=== PATIENT | female | born 1945 | race Caucasian/White ===

== ENCOUNTER 2018-06-18 00:59 | Outpatient (CLI) | payer MEDICARE, SELFPAY ==
--- NOTE | 2018-06-18 10:15 | DI.RPTCT_ITS ---
SYMPTOM/DIAGNOSIS: S/P ORIF FEMORAL FX SCANOGRAM CT 06/18 CT scanogram was performed for leg length determination. The examination is not intended for diagnostic purposes. Note is made of a left intramedullary graeme/gamma nail in the femur.
== END 2018-06-18 01:00 ==
PROVIDERS: Visit Provider Podiatrist
DX: S72.102D Unspecified trochanteric fracture of left femur, subsequent encounter for closed fracture with routine healing (principal)

== ENCOUNTER 2018-06-25 08:30 | Outpatient (RCR) | payer MEDICARE, SELFPAY ==
--- NOTE | 2018-05-29 08:42 | AT_ITS ---
05/29/18 ATx2- See flow sheet. Pt requires remarkable skilled cueing for proper performance of all exercises due to poor body awareness particularly with hip girdle exercises. Continued cueing to reduce (L) hip Trendelenburg and better glute activation. See flow sheet for specifics for exercises. Focused more on hip versus UE todays. I will be following up with her in the clinic tomorrow. Total Time: 45 minutes Direct Time: 30 minutes Pt performs a warm up and cool down activities with minimal supervision.
--- NOTE | 2018-05-30 11:40 | PTTR_ITS ---
DATE: 05/30/18 OBJECTIVE: Co treatment with PT Yissel Nair Therapeutic procedures ([id number]). * X Provided skilled instruction in proper exercise performance: Pt completed glute strengthening, LE strengthening, SLS activities, reviewing pt ambulation with gait mechanics, scapular stabilization ther ex, ocean freight agent strengthening, UE strengthening, and cardio on the Nu Step. We tried to complete the treadmill but pt was having some difficulty with her ambulation so it was better just ambulating in the clinic. Pt did require mod vc's and tactile throughout her session for correction of posture and mechanics. Direct treatment time: 30 Total treatment time: 35
--- NOTE | 2018-05-30 15:20 | PTTR_ITS ---
DATE: 05/30/18 SUBJECTIVE: Pt wishes that she was not limping.denies any (L) wrist pain. Her function continues to improve weekly. She is now performing more gripping and grasping activities, of course struggles with more higher level activities. She continues to struggle with supination noticing this when tossing a salad or lifting something up to toss it to her (L) side. She does massage along the anterior hip which decreased some of her fluid, and she continues to perform this on her own. Would like assist with this once again. Will likely begin swimming performing free swim. OBJECTIVE: Observation: Continues to have mild discomfort along the anterior (L) hip. ROM: (L) hip pre tx: Flexion is at 100* ER is 20* IR 10* Abduction 20* Extension 0* Post Tx: Flexion 120* ER 40* IR 20* Extension 5* Abduction 30* (L) wrist Pre Tx: Flexion/Extension 45* Supination 45* Pronation Full Radial and Ulnar deviation WNL Post Tx: Flexion 70* Extension 80* Supination 60* Accessory motion: Moderately limited into all planes of the (L) hip particularly the PA mobs, (L) wrist is WNL. Manual therapy: ([id number]). Mobilize (L) hip all planes of motion with grade 4 oscillations. Prolonged stretching into figure 4 position and supine twist. Cupping throughout the (L) anterior thigh along the region of fluid accumulation. (L) wrist accessory mobilization all planes with end range over pressure into flexion and extension. Primary focus on supination working distally and proximally at the elbow. TP- Minimal time spent initiate (R) side lying (L) clam, and (L) hip abduction SLR. For proper activation of (L) glute and to ensure proper movement performance with multiple cues needed for correction. She was then continued to be treated by Ira Yoon PTA per my direction for focus of (L) hip stabilization due to cues needed. ASSESSMENT: Shahnaz is doing well, she does continue to have a mild gait antalgia with mild Trendelenburg during (L) stance. In hesitant due to fear. She has premature toe off not allowing for full extension at the (L) hip. Will be initiating more isolated land based ther ex with (L) hip to reduce these impairments. (L) wrist seems to be doing well primarily making gains for functional use, primary will focus on the (L) hip incorporating (L) wrist strengthening throughout. Primary focus of the hip is the extensors and abductors for stabilization limited in static stabilization versus the (L) hip, and gait training. Her pain is under good control. She will continue with free swimming on her own and focus on general fitness and gross conditioning. PLAN:Proceed 2x per week with land based interventions for (L) hip stabilization and mobilization and (L) UE strengthening. Direct treatment time: 30 minutes Total treatment time: 30 minutes
--- NOTE | 2018-06-02 10:30 | PTTR_ITS ---
DATE: 06/02/18 SUBJECTIVE: Shahnaz stating she went for a 3 1/2 hour walk over the weekend, she was just globally fatigued following this. She continues to report minimal pain. She feels her L wrist mobility in regards to supination continues to improve more and more as she is noticing with tossing salads, or lifting objects and transferring them to her l side is getting easier. Manual therapy: ([id number]). L hip: AP mobilization and lateral mobilization followed by ROM all planes with grade 4 oscillation end ranges, working into IR/ ER, hip abduction as well as hip extension and hip flexion, L hip ROM: flexion 120, ER reaches 30, IR 20, abduction 30, extension 5 degrees. SLR is full. L wrist: Complete distraction of distal radial and ulnar mobilizations, and proximal radial, ulnar mobs. Complete end range flexion/extension over pressure reaching 80 degrees easily with most of focus into supination grade 4 oscillations, beginning at 45 degrees, ending at 80 degrees of motion. She is then seen by Ira Yoon PTA for her Therex portion of treatment per my direction. Direct treatment time: 30 mins Total treatment time: 30 mins MAURILIO/dl
--- NOTE | 2018-06-02 11:50 | PTTR_ITS ---
DATE: 06/02/18 OBJECTIVE: Co Treatment with PT Yissel Nair Therapeutic procedures ([id number]). * X Provided skilled instruction in proper exercise performance: Pt completed LE strengthening, glute strengthening, and UE strengthening, and cardio on the Nu Step. Pt required tactile cueing for her LE and glute strengthening. Direct treatment time: 30 Total treatment time: 40
--- NOTE | 2018-06-05 10:07 | PTTR_ITS ---
DATE: 06/05/18 OBJECTIVE: Co Treatment with PT Yissel Nair Therapeutic procedures ([id number]). * X Provided skilled instruction in proper exercise performance: Pt completed UE strengthening, drug counselor strengthening, scapular stabilization ther ex, LE strengthening, and glute strengthening as per flow sheet. Pt require significantly less cueing today and was able to tolerate a slight increase in her program today. Direct treatment time: 30 Total treatment time: 45
--- NOTE | 2018-06-05 10:36 | PTTR_ITS ---
DATE: 06/05/18 SUBJECTIVE: No great complaints, but is requesting soft tissue and cupping work to anterior L thigh again, due to positive response from prior treatments. Last treatment this was not completed, and she could appreciate more of a positive difference with cupping. She continues to work on her glute strength best she can. No wrist complaints, continues to gain insulation inspector strength. OBJECTIVE: KX applied to all codes N/A Manual therapy: ([id number]). STM retrograde L proximal rectus femoris and medial ITB, and cupping through this region. Continues to present with mild soft tissue swelling through this region compared to the R side. Mobilization of R hip all planes, with end rnage grade 4+ oscillations. ROM: Flexion 130*, ER 40*, IR 30*, abduction 40*. Upregulation IASTM through L glute med, followed by ROCK taping application to facilitate glute med, for neuro facilitation prior to ther ex. She was then seen by Ira Yoon PTA for ther ex poriton of treatment per my direction, see her note fore specifics. Direct treatment time: 30 minutes Total treatment time: 30 minutes Assessment: Positive response to STM, with swelling reduction post treatment. gaining ROM of the hip, with less end range restriction and discomfort. Plan: Per POC
--- NOTE | 2018-06-11 12:30 | PN_ITS ---
DATE: June 11, 2018 REFERRING: Hector Mancilla M.D. REFERRING PROVIDER DIAGNOSIS:: S/p left hip trochanteric ORIF, left wrist ORIF 02/12/18 PHYSICAL THERAPY DIAGNOSIS: same REPORTING PERIOD (for progress note and discharge note only): May 06 til June 11 SUBJECTIVE: Shahnaz's main complaint is of limping with ambulation. She makes no complaints of pain. She does note that it is difficult, at times, for her to carry things in her left hand that are heavier, such as a pot or heavy plate, which involves full supination. Otherwise, all activities involving the left UE are WNL. She has no pain in her left hip, but she does note that she continues to limp, especially after being on her feet for long periods or when attempting uneven terrain. She continues to appreciate that her left leg is shorter, and she uses a heel lift to accommodate for this. This weekend she went hiking with her , 3 1/2 hours on their property on uneven terrain, and she was surprised at how well she did. She complains of no pain or weakness following this adventure. She did have family over the weekend where she went to and from her house to an outside dining area, carrying all the dishes, and this did fatigue her, but again with no pain. Standardized Measures: * Lower Extremity Functional Scale Score (LEFS): 22% (improved from 55% at time of I.E.) * Disability Arm/Shoulder/Hand Score (DASH): 30% (improved from 82% at time of I.E.) OBJECTIVE: Posture: Continues to have remarkable depression of the left ilium compared to the right, which is diminished with use of a 1/2 heel lift. Observation: Continues to have prominence of left ulnar styloid process. No longer having swelling of the left LE. Continues to have mild swelling along the anterior left hip at the proximal rectus femoris, but this is improved compared to time of I.E. Gait: (indicate right or left deficits) Antalgic with decreased stance on the left LE with a mild Trendelenburg. This is improved form prior sessions, but slowly gaining. No assisted device. Now using a good heel to toe auto mechanic supervisor/ movement pattern. ROM: Left hip flexion 120 , internal rotation 20 (pre treatment) and 40 ( post treatment), external rotation 40 , abduction 20 (pre treatment) and 45 (post treatment) and extension 5 . Left wrist flexion 70 , extension 80 , pronation full, radial and ulnar deviation full, supination begins at 60 and ends at 80 and digit mobility of the left UE is otherwise WNL. Bilateral LEs are otherwise WNL. Lumbar movements are WNL and non irritable. Joint accessory motion: Distal radial carpal mobs are hypo mobile due to her ORIF. Carpal radial mobs are WNL. Proximal ulnar radial are WNL. Left hip is WNL. Strength: Left hip flexion 4/5; right 5/5, internal and external rotation left 4/5; right 5/5, bilateral hip abduction 4/5, right glute 5/5; left 4-/ 5. She now has good palpable contraction of her left glute medius, but still with a degree of hip flexor recruitment. When doing an isometric glute contraction she is immediately able to fire a good strong contraction on the right, but the left is hesitant and delayed. Wrist is 5/5 all planes with the exception of supination at a 4+/5. Neurological: WNL throughout Balance: Left single leg stance is 10 seconds, mildly more unsteady compared to the right which is also 10 seconds, but no Trendelenburg noted. Special Tests (indicate): NA Treatment: Manual therapy ([id number] [id number]) Mobilized the left wrist at the distal radial ulnar joints with focus on supination motion, end range supination, oscillations at a Grade 4 with supination METs, completed left hip mobilizations all planes with internal rotation METs into the internal rotation direction. End range oscillations. Other directions at a Grade 4. Patient required passive over pressure into right pelvic rotation for left hip adduction over pressure stretching. She was then seen by Mohamud KwanTRazia for ther-ex portion of today's treatment, per my direction, with progressions made to her program today for isolation of the left glute. Direct and total treatment time: 30 minutes ASSESSMENT: Shahnaz is a 72 year old female referred for P.T. services following ORIF of her left distal radius and intramedullary nailing of her left hip on 02/12/18. She presents with clinical signs and symptoms consistent with healing condition of both areas, and now with improved mobility and strength of her left wrist and hip with most deficits of left wrist supination and mobility deficits. Supination strength and mobility deficits as well as left gluteal weakness contributing to her gait antalgia. She continues to have mild mobility deficits of the left hip, particularly into internal rotation, which quickly and easily respond to manual therapy. I anticipate these will continue to have more of a intermediate accountant effect as we proceed through treatments. Her impairment issues as documented above contribute to gait antalgia, difficulty with long duration and uneven terrain ambulation, however this is improving. She is struggling to hold on to heavy objects in the left hand, such as plates and/or pots. She will continue to require P.T. intervention to attend to the above functional deficits, and return her to her premorbid level of function. Her prognosis remains good. G-Codes (add modifier after appropriate code): Patient's primary functional limitation is in the category of: * x Carrying, moving and handling objects: [id number] based on results of DASH score demonstrating improved disability compared to her LEFS Projected goal: [id number] ST: DASH score improved to a 50% disability 2: LEFS improved to 35% disability. 3: Patient able to ambulate on uneven terrain and slight inclines at 10% for 15 -20 mins without pain. 4: Patient reporting 50% in confidence with use of the L UE. * all goals have been met LT: LEFS improved to 20% disability or less - progressing toward (at a 22% disability compared to 55% at time of I.E.) 2: DASH improved to 19% disability or less - progressing toward (at a 30% disability compared to 82% at time of I.E.) 3: Able to continue with full painfree functional mobility - progressing toward (working toward heavy object manipulation with the left UE) 4: Able to resume premorbid level of function.- progressing toward (continues to push herself in attempts at uneven terrain ambulation and heavy object manipulation with the left UE. PLAN: See the patient 2x per week for an additional 6 weeks. Treatment to include manual therapies for mobilization of the left hip and left wrist with particular focus on supination. Therapeutic exercises for gross left hip girdle strengthening with focus on the left glute and left UE focusing on biceps and supination. Thank you for this referral! Please sign, date and return to our clinic with your approval.............................. Hector Mancilla M.D.
--- NOTE | 2018-06-11 15:18 | PTTR_ITS ---
DATE: 06/11/18 OBJECTIVE: Co-treatment with primary therapist, JOSE Tao. Therapeutic procedures ([id number]). * [X] See flow sheet: Patient completed a LE and UE strengthening program with L glutes and L biceps focus, as per flow sheet. Patient was able to tolerate a progression in her program today, modifications made to reps are noted on flow sheet. Patient required tactile cuing for appropriate posturing and core activation, as well as glute isolation with most exercises performed. * [X] Provided skilled instruction in proper exercise performance. * [X] Other: Patient ends with NuStep biking via [facility]. Direct treatment time: 35 minutes Total treatment time: 40 minutes
--- NOTE | 2018-06-13 09:29 | PTTR_ITS ---
DATE: 06/13/18 SUBJECTIVE: Ambulated 4 miles yesterday, on level terrain and is good following this. She feels that her (L) wrist is actually rotating better and she is gripping better since her last tx. OBJECTIVE: Manual therapy: ([id number]). To (L) wrist distraction as well as distal ulnar PA gliding, distal radial AP gliding grade 4 oscillations with supination over pressure with end range supination isometric holds for 10 seconds x 10. Then (L ) hip AP and lateral gliding followed by IR grade 4 oscillations with IR METs. ( L) hip flexion oscillations of a grade 4 to 4+ followed by ER oscillations with ER METs grade 4. She is then seen by Sarah Tyson PTA per my instructions please see her note. Direct treatment time: 25 minutes Total treatment time: 25 minutes
--- NOTE | 2018-06-13 11:47 | PTTR_ITS ---
DATE: 06/13/18 OBJECTIVE: Co-treatment with primary therapist, JOSE Tao. Please see her note for specifics. Therapeutic procedures ([id number]). * [X] See flow sheet: Patient completed an UE and LE strengthening program with core stabilization, as per flow sheet. Patient was able to tolerate a slight progression in her program today, with good tolerance. * [X] Provided skilled instruction in proper exercise performance. * [X] Provided skilled manual cues to facilitate proper muscle recruitment and/or movement pattern: Patient continues to require max cuing throughout session for core stabilization and activation throughout, as well as for pacing and posture. * [X] Other: Patient completed the remainder of her ther ex program, via [facility] under strainer cleaner supervision. Direct treatment time: 30 minutes Total treatment time: 45 minutes
--- NOTE | 2018-06-18 08:30 | PTTR_ITS ---
DATE: 06/18/18 SUBJECTIVE: The patient concerned that she continues to have fluid accumulation along the L proximal lateral side. It is not bothersome to her. She does feel that her gait is improving, but continues to appreciate leg length discrepancy. She saw her torch operator for toe clippings a week ago and he has ordered an x-ray of her L hip to determine the length difference between her legs. That is today at 11:00. Her wrist continues to minimally bothersome. Manual therapy: ([id number]). Cupping to the L proximal, lateral thigh along the region of fluid accumulation as well as retrograde massage. Mobilization of L hip all planes with focus of IR mobilization where she is most limited. ROM: Flexion 130, ER begins at 40, ends at 45. IR beginning 20, ending at 45, abduction 20-30 degrees. Extension to 10 degrees. SLR performed beginning at 60 degrees ending at 80. L wrist mobilization beginning with distraction and distal, radial, ulna mobilizations with focus on anterior ulnar mobilization and posterior radial to encourage supination mobility, this is also performed proximally at the elbow with end range supination, mobilizations of a grade 4 eventually achieving 85 degrees of supination beginning at 60 degrees, all other planes WNL. She is then seen by Ira Yoon PTA for Therex portion of treatment per my direction. (see her note for specifics) Direct treatment time: 30 mins Total treatment time: 30 mins JH/dl
--- NOTE | 2018-06-18 10:53 | PTTR_ITS ---
DATE: 06/18/18 OBJECTIVE: Co Treatment with PT Yissel Nair Therapeutic procedures ([id number]). * X Provided skilled instruction in proper exercise performance: Pt completed glute strengthening, core stabilization ther ex, LE strengthening, SLS activities on the Airex, and cardio as per flow sheet. Pt did require min tactile cueing for correction of her mechanics with her ther ex. We will cont with pt's ther ex program gearing her more towards an MSP program. Direct treatment time: 30 Total treatment time: 45
--- NOTE | 2018-06-25 10:38 | PTTR_ITS ---
DATE: 06/25/18 SUBJECTIVE: CT scan verified 1 in.shortening of L femur. Continues to feel her gait is improving. Now able to lift all object iwth her L hand in any position, except for one heavy black frying pain. OBJECTIVE: KX applied to all codes N/A Manual therapy: ([id number]). Cupping L proximal anterior thigh, and retrograde deep tissue work/MLD FA mobilization, all planes with end range grade 4 oscillations, with focus of IR. L wrist distraction, and AP/PA grade 4++ mobilizations, with focus of distal radius PA and distal ulnar AP to encourage supination. Proximal radial and ulnar mobilization to encourage supination as well. End range supination mobilization, grade 4++. L hip ROM: Flexion 130*, IR 30*, ER 45*, extension 10* L wrist ROM: Flexion, extension and radial.ulnar deviation WNL, pronation WNL, supination pre-rx 60*, supination post-rx 80*. Therapeutic procedures ([id number]). Competed with Ira Yoon per my instructions, see her note and flow sheet. Patient Education: Recommend external heel lift for her shoes, due to the dramatic leg length discrepancy and the influence this has on her gait, and potential for biomechanical chain strain. Direct treatment time: 30 minutes Total treatment time: 30 minutes Assessment: Shahnaz is doing very well. She has overall had plateau of motion in her L hip and wrist over the past few weeks. I anticipate at this point, her motion will continue to gain with time, her general activity, and her HEP compliance. I feel it now appropriate to transition her onto a MSP, considering her lack of discomfort, functional ROM and plateauing mobility, and her compete return to usual functional tasks. Strongly recommend external heel lift shoe modifications. Plan: Shahnaz will complete 2-3 more sessions, or maybe less, with Ira Yoon PTA for instruction and progression onto a MSP. She will follow up with me in one month's time, after the start of her MSP.
--- NOTE | 2018-06-25 13:08 | PTTR_ITS ---
DATE: 06/25/18 CO TREATMENT W/Callie Nair P.T. See her note for details. OBJECTIVE: Therapeutic procedures ([id number]). * x See flow sheet: core stabilization, LE strengthening and glute strengthening * The patient is working toward MSP. Also, had UE strengthening exercises added to her program as well. She will have another visit or two with me just to make sure she has a good understanding of MSP. Direct treatment time: 30 minutes Total treatment time: Almost an hour. She worked on [facility] for the remainder of her time. /harvinder
== END 2018-06-27 23:59 | disposition home or self-care (01) ==
LOC: PT 08:30
PROVIDERS: Referring Provider Orthopaedic Surgery; Visit Provider Orthopaedic Surgery
DX: S72.102D Unspecified trochanteric fracture of left femur, subsequent encounter for closed fracture with routine healing (principal); S62.102D Fracture of unspecified carpal bone, left wrist, subsequent encounter for fracture with routine healing
CPT/HCPCS: 97110; 97113; 97140